=== PATIENT | male | born 1985 | race Caucasian/White ===

== ENCOUNTER → 2021-09-04 | Outpatient (CLI) | payer OTHER ==
--- NOTE | 2021-09-04 18:53 | RAD ---
Study: XR ELBOW COMPLETE_LEFT 3+VIEWS Indication: Injury. Fall. Comparison: None. Findings: No acute fracture. Alignment is anatomic. No elbow joint effusion. No retained radiodense foreign bod y. Impression: No fracture or malalignment. Electronically signed by: JOHANNY GUERRERO MD (09/04/2021 6:51 PM) [facility]
== END ==
LOC: RAD 18:00
PROVIDERS: ATTEND Registered Nurse
DX: S59.902A Unspecified injury of left elbow, initial encounter (principal); M25.522 Pain in left elbow; W19.XXXA Unspecified fall, initial encounter; Y93.89 Activity, other specified; Y92.89 Other specified places as the place of occurrence of the external cause; Y99.8 Other external cause status
CPT/HCPCS: 73080